=== PATIENT | male | born 1945 | race Caucasian/White ===

== ENCOUNTER → 2018-11-24 | Outpatient (CLI) | payer OTHER ==
[~2018-11-24] VITALS: Ht 182.9 cm; Wt 93.4 kg
[~2018-11-24] MED LIST: ASPIR 8181 MG PO; COENZYME Q10100 M2 PO; DILTIAZEM 24HR180 M1 PO; FISH OIL DR 1,1 EAC1 PO; FLECAINIDE ACET50 M1 PO; ICAPS MV TABLE1 EAC1 PO; LIPITOR 20 MG T20 M1 PO; METFORMIN HCL500 MG PO; NORVASC5 MG PO; TOPROL XL100 MG PO; VITAMINC500 PO; XARELTO20 MG PO; ZYLOPRIM300 MG PO
[2018-11-24 07:44] VITALS: BP 141/88
--- NOTE | 2018-11-24 08:56 | TEE ---
[facility] [address] [place] [address] TRANSESOPHAGEAL ECHOCARDIOGRAM Name: DYLAN PUGH Room #: REG CL Akhil#: [id number] ������������� Admission: 11/24/18 ������������� Attend Phys: Leonel Mason, Discharge: ��� ������������� ��� Date of : 47 Date of Service: 11/24/18 0856 �� Report #: [id number] �������� ��������������������������������������������[id number] THIS REPORT FOR: //name// APPROVED REPORT Study performed: 11/24/2018 08:02:36 EXAM: Transesophageal Echocardiogram with Doppler and cardioversion Patient Location: Out-Patient Room #: 9 Status: routine BSA: 2.18 HR: 79 bpm BP: 121/80 mmHg Rhythm: Atrial Fibrillation Other Information Study Quality: Excellent Indications Atrial Fibrillation Echo Enhancing Agent Indication: Rule out Shunt Agent(s) / Amount(s) Used: Agitated Saline 7 cc Procedure After obtaining informed consent, patient underwent transesophageal echo in the General Studies Program Chair Holding. Type of Sedation : Conscious Sedation Sedation was administered by Osman Adames RN. Sedation was achieved intravenously with: Versed (4 mg) Fentanyl (100 mcg) Transesophageal probe was inserted and advanced into esophagus without difficulty by Austyn Chapin MD. Echo enhancement indication: R/O Septal defect. Echo enhancement agent administered: Agitated Saline The CODIE was performed without complications. Synchronized Cardioversion acheived with 100 Joules after 1 attempt(s). Rhythm following Synchronized Cardioversion: Normal Sinus Rhythm Throughout the procedure, the blood pressure, pulse oximetry, cardiac rhythm, and rate were monitored. The patient tolerated the procedure without adverse effects. Recovery [facility] [address] [place] [address] TRANSESOPHAGEAL ECHOCARDIOGRAM Name: DYLAN PUGH Room #: REG CASSY Landaverde#: [id number] ������������� Admission: 11/24/18 ������������� Attend Phys: Leonel Mason, Discharge: ��� ������������� ��� Date of : 47 Date of Service: 11/24/18 0856 �� Report #: [id number] �������� ��������������������������������������������[id number] from conscious sedation was uneventful and vital signs were stable. Left Ventricle The left ventricle is normal size. There is normal LV segmental wall motion. There is normal left ventricular wall thickness. The left ventricular systolic function is normal. The left ventricular ejection fraction is within the normal range. LVEF is 50-55%. Right Ventricle The right ventricle is normal size. The right ventricular systolic function is normal. Atria Left atrium is severely dilated. No thrombus is visualized in the left atrium or appendage. No shunting by contrast bubble injection Right atrium is severely dilated. Aortic Valve The aortic valve is normal in structure. No aortic regurgitation is present. There is no aortic valvular stenosis. Mitral Valve The mitral valve is normal in structure. Mild mitral regurgitation. No evidence of mitral valve stenosis. Tricuspid Valve The tricuspid valve is normal in structure. Mild tricuspid regurgitation. Pulmonic Valve The pulmonary valve is normal in structure. There is no pulmonic valvular regurgitation. Great Vessels The aortic root is normal in size. The ascending aorta is normal in size. IVC is normal in size and collapses >50% with inspiration. Pericardium There is no pericardial effusion. <Conclusion> The left ventricular systolic function is normal. There is normal LV segmental wall motion. LVEF is 50-55%. [facility] [address] [address] TRANSESOPHAGEAL ECHOCARDIOGRAM Name: DYLAN PUGH Room #: REG [facility] [id number] ������������� Admission: 11/24/18 ������������� Attend Phys: Leonel Mason, Discharge: ��� ������������� ��� Date of : 47 Date of Service: 11/24/18 0856 �� Report #: [id number] �������� ��������������������������������������������[id number] Both atria are severely dilated. No thrombus is visualized in the left atrium or appendage. No shunting by contrast bubble injection The aortic valve is normal in structure. No aortic regurgitation or stenosis The mitral valve is normal in structure. Mild mitral regurgitation. There is no pericardial effusion. Successful cardioversion of atrial fibrillation to sinus rhythm following a single 100 J biphasic synchronous shock. ��������������������������������������������� <ELECTRONICALLY SIGNED> ���������������������������������������� By: Austyn Chapin MD, [facility] ��������������������������������������������� 11/24/1856 Austyn Chapin MD, FACC /INF
--- NOTE | 2018-11-26 14:04 | EKG ---
[place] [address] [facility] [place] [address] ELECTROCARDIOGRAM REPORT Name: DYLAN PUGH Room #: REG [facility]Jabari[facility] [id number] ������������������ Admission: 11/24/18 ������������������ Attend Phys: Leonel Mason MD, Discharge: ������������������ Date of : 47 Report #: [id number] ����������������������������������������������������������������� [id number] THIS REPORT FOR: //name// [facility] Test Date: 2018-11-24 Test Time: 08:49:05 Pat Name: DYLAN PUGH Department: Room: Gender: M Student Services Representative: Valerie SIFUENTES : 1945 Requested By: Austyn Chapin Order Number: [id number] MD: Austyn Chapin Measurements Intervals [place] Rate: 48 P: 44 [place]: 263 QRS: 0 QRSD: 107 T: 33 QT: 492 QTc: 440 Interpretive Statements Sinus bradycardia Prolonged [place] interval No previous ECG available for comparison Electronically Signed On 11-26-2018 14:04:42 CDT by Austyn Chapin [email or web address] ��������������������������������������������� <ELECTRONICALLY SIGNED> ���������������������������������������� By: Austyn Chapin MD, [facility] ��������������������������������������������� 11/26/18 1404 0849 0849 Austyn Chapin MD, FAC /EPI
== END | disposition home or self-care (01) ==
LOC: CATH 06:58
DX: I48.91 Unspecified atrial fibrillation (principal); I08.1 Rheumatic disorders of both mitral and tricuspid valves; I10 Essential (primary) hypertension; M10.9 Gout, unspecified; Z98.890 Other specified postprocedural states; Z87.891 Personal history of nicotine dependence; Z79.01 Long term (current) use of anticoagulants; Z79.899 Other long term (current) drug therapy; Z82.49 Family history of ischemic heart disease and other diseases of the circulatory system; Z79.82 Long term (current) use of aspirin

== ENCOUNTER → 2019-01-29 | Outpatient (CLI) | payer OTHER ==
[2019-01-29 09:40] LABS: HEMATOCRIT 43.4 % (42.0-52.0); HEMOGLOBIN 14.7 gm/dL (14.0-18.0); MCH 34.4 pg (26.0-34.0); MCHC 33.8 g/dL (28.0-37.0); MCV 101.8 fL (80.0-100.0); RBC 4.27 mil/uL (4.50-6.00); RDW 14.7 % (10.5-14.5); WBC 8.7 thou/uL (4.0-11.0)
[2019-01-29 09:56] LABS: APTT 34.8 Seconds (24.5-32.8); INR 1.2; PROTIME 12.7 Seconds (9.3-11.4)
[2019-01-29 10:01] LABS: ALBUMIN 3.7 g/dL (3.4-5.0); CALCIUM 9.4 mg/dL (8.5-10.1); CREATININE 1.1 mg/dL (0.7-1.3); POTASSIUM 4.5 mmol/L (3.5-5.1); TOTAL BILIRUBIN 1.4 mg/dL (<0.1-1.0); TOTAL PROTEIN 6.9 g/dL (6.4-8.2)
== END ==
LOC: CAT → CATH 15:35 → CAT 15:36
PROVIDERS: Internal Medicine Cardiovascular Disease
DX: I48.91 Unspecified atrial fibrillation (principal); I25.10 Atherosclerotic heart disease of native coronary artery without angina pectoris

== ENCOUNTER 2019-01-31 06:16 | Observation (INO) | payer OTHER ==
[2019-01-31] VITALS (11 sets, daily range): BP systolic 89–128; BP diastolic 53–90
[~2019-01-31] VITALS: Ht 182.9 cm; Wt 94.0 kg
[2019-01-31 07:02] LABS: ABSOLUTE NEUTROPHILS 4.1 thou/uL (1.4-8.2); BASOPHILS 0.9 % (0.0-2.0); EOSINOPHILS 10.4 % (0.0-3.0); HEMATOCRIT 44.6 % (42.0-52.0); HEMOGLOBIN 14.7 gm/dL (14.0-18.0); LYMPHOCYTES 31.2 % (24.0-44.0); MCH 33.6 pg (26.0-34.0); MCV 101.8 fL (80.0-100.0); MONOCYTES 7.3 % (1.0-8.0); PLATELET COUNT 230 thou/uL (150-400); POLYS 50.2 % (36.0-66.0); RBC 4.38 mil/uL (4.50-6.00); RDW 14.9 % (10.5-14.5); WBC 8.2 thou/uL (4.0-11.0)
[2019-01-31 07:13] LABS: CALCIUM 9.9 mg/dL (8.5-10.1); CREATININE 1.1 mg/dL (0.7-1.3); POTASSIUM 4.3 mmol/L (3.5-5.1)
[2019-01-31 07:15] LABS: APTT 30.3 Seconds (24.5-32.8); INR 1.1; PROTIME 11.4 Seconds (9.3-11.4)
[2019-01-31 07:19] LABS: ALBUMIN 3.9 g/dL (3.4-5.0); TOTAL BILIRUBIN 1.2 mg/dL (<0.1-1.0); TOTAL PROTEIN 7.5 g/dL (6.4-8.2)
--- NOTE | 2019-01-31 17:11 | NUR ---
PT CARE ASSUMED APPROX 1345. ASSESSMENTS CHARTED. VSS. PT DENIES PAIN AND SOA. PT INITIALLY REPORTS A SORE THROAT AND AN ORDER FOR LOZENGES WAS OBTAINED THEN PT REFUSED THEM. RIGHT GROIN POST SHEATH SITE C/D/I AND NO HEMATOMA NOTED. GAIT UNASSESSED AT THIS TIME DUE TO POST PROCEDURE BEDREST. MARTINEZ CATH PATENT. WAS AT BEDSIDE UPON ARRIVAL. ADMISSION COMPLETED WITH HER. PT TOLERATING POC. NO DISTRESS NOTED.
--- NOTE | 2019-01-31 19:19 | NUR ---
APPROX 1820 MARTINEZ CATH REMOVED WITHOUT ISSUE. PT HAS ALREADY VOIDED. UP WITH STEADY GAIT
[2019-02-01 00:24] VITALS: BP 105/62
[2019-02-01 03:21] VITALS: BP 102/63
--- NOTE | 2019-02-01 04:32 | NUR ---
ASSUMED PT CARE AT 1900. PT A/OX4, VITAL SIGNSSTABLE, ASSSESSMENT CHARTED. NO COMPLAINT OF PAIN, GROIN SITE CLEAN DRY, INTACT. PT RESTED WELL THROUGH THE NIGHT. NO ACUTE CHANGES THROUGH THE NIGHT. PROGRESSING TOWARD PLAN OF CARE, WILL CONTINUE TO MONITOR.
[2019-02-01 08:00] VITALS: BP 115/67
[2019-02-01] MEDS ORDERED: TAMBOCOR 100 M100 M1 PO (08:20)
--- NOTE | 2019-02-01 08:22 | P ---
[facility] [place] [address] PROCEDURE REPORT Name: DYLAN PUGH Room #: 210-P [facility]..#: [id number] Admission: 01/31/19 Attend Phys: Favian Benitez MD Discharge: Date of : 47 Report #: [id number] THIS REPORT FOR: //name// CC: Gary Benitez PREOPERATIVE DIAGNOSIS: Atrial fibrillation. POSTOPERATIVE DIAGNOSIS: Atrial fibrillation. HISTORY: The patient is a 73-year-old male with history of recurrent atrial fibrillation despite antiarrhythmic drug therapy. He is here for ablation. PROCEDURES PERFORMED: 1. Atrial fibrillation, CPT code 12774. 2. 3D mapping, CPT code 40404. 3. Intracardiac echo, CPT code 61984. 4. Focal ablation, CPT code 71963. ANESTHESIA: The patient underwent general anesthesia with no anesthesia related complications. DESCRIPTION OF PROCEDURE: The patient underwent informed consent. We discussed the details of the procedure including the risks, which include but not limited to bleeding, vascular damage, cardiac perforation, stroke or IN. He understood these risks and is willing to proceed. The patient was brought to EP laboratory in fasting and sedated state, prepped and draped in a sterile fashion. At baseline, the patient was noted to be in atrial fibrillation. Next, I injected lidocaine at the right groin and obtained access to the right femoral vein x 3, placing an 8, 9 and 7-Namibian short sheath using the modified Seldinger technique. Next, under fluoroscopy, decapolar catheter was placed easily in the coronary sinus and an ice catheter was placed in the right atrium. Using intracardiac ultrasound, I visualized the left common ostium in the right superior and right inferior pulmonary veins. I also visualized the left atrial appendage, which was within normal limits. Next, the patient was systemically heparinized and a transseptal was performed using an SL1 sheath and a [place] needle. On the first attempt, I crossed with my wire into the left superior pulmonary vein and then exchanged the SL1 sheath for the cryo sheath and placed this into the left atrium. Next, using a Lasso catheter, a detailed 3D voltage map of the left atrium was created of the left common ostium, which had a superior and inferior branch. The patient also had right superior and right inferior branches with normal takeoff. Next, the Lasso was removed and the cryoballoon was placed in the left atrium. I performed multiple freezes of the left superior pulmonary vein and although I was able to get a slowing of this pulmonary vein, I could never obtained isolation. I then decided to turn my attention to the left inferior pulmonary vein. This vein [address] [address] PROCEDURE REPORT Name: DYLAN PUGH Room #: 210-P [facility] Chiquita M.RJabari#: [id number] Admission: 01/31/19 Attend Phys: Favian Benitez MD Discharge: Date of : 47 Report #: [id number] underwent two 4-minute freezes and the vein isolated during the first freeze within 20 seconds. I then re-interrogated the left superior pulmonary vein, hoping that this would now be isolated, but it still remained connected. I therefore turned my attention to the right superior pulmonary vein and performed a 4-minute, followed by 3-minute freeze. The vein isolated in the first freeze within 40 seconds. I then performed a 4-minute, followed by 3-minute freeze of the right inferior pulmonary vein. This vein isolated during the first freeze within 30 seconds. Of note, the right superior pulmonary vein had a difficult takeoff was hard for me to actually engage this vessel, but once engaged isolation was straightforward. Next, I re-interrogated the left superior pulmonary vein and it was still clearly connected. I decided to therefore perform a posterior wall isolation using the cryoballoon. I performed 3 freezes anchored from the left superior pulmonary vein and 3 freezes isolated anchored from the right superior pulmonary vein. This did not result in isolation of the left superior pulmonary vein either. I performed 2 freezes anchored from the left inferior pulmonary vein of the posterior wall as well and this did not result in isolation of the left superior either. The esophageal temperatures were monitored during our freezes and there were never any significant changes in esophageal temperature. Therefore, at this point, I decided to perform a cardioversion. The patient underwent a 200 joule cardioversion and I then created a voltage map using a Lasso catheter. The left superior pulmonary vein was clearly connected with conduction noted while pacing from the Lasso catheter. All the other veins were isolated and furthermore the posterior roof and posterior wall appeared to be isolated as well. Therefore, I performed a second transseptal using an SL1 sheath and placed a SmartTouch ThermoCool into the left atrium. There was a small area of connection that was arising from the superior anterior aspect of the left superior pulmonary vein, right along the ridge. I placed my ablation catheter at the earliest signals noted on the Lasso catheter and ablation was started at 35 vazquez in isolation of the vein occurred within 10 seconds. I therefore decided to perform additional ablation along this region to ensure that this vein does not reconnect. This was clearly a gap that I could not get into approximation with the cryoballoon. Therefore, I repeated the voltage map of the left atrium and everything was now isolated. There was clearly entrance and exit block in the left superior pulmonary vein. As such, at this point, the procedure was concluded. Using intracardiac ultrasound, I verified there was no pericardial effusion. The patient received systemic protamine and once ACT was within acceptable range, catheters and sheaths were pulled and hemostasis was obtained. The patient awoke neurologically and hemodynamically intact. No complications and no significant bleeding. CONCLUSIONS: 1. Successful AFib ablation with isolation of the 4 pulmonary veins. 2. Successful posterior wall isolation with creation of a posterior roofline. [facility] [address] [place] [address] PROCEDURE REPORT Name: DYLAN PUGH Room #: 210-P [facility]..#: [id number] Admission: 01/31/19 Attend Phys: Favian Benitez MD Discharge: Date of : 47 Report #: [id number] 3. Successful isolation of the left superior pulmonary vein, requiring a combination of cryoablation and radiofrequency ablation. <ELECTRONICALLY SIGNED> By: Favian Benitez MD 02/01/19 0822 1633 0159 Favian Benitez MD /nt
--- NOTE | 2019-02-01 08:23 | D ---
[facility] [place] [address] DISCHARGE SUMMARY Name: DYLAN PUGH Room #: 210-P [facility]..#: [id number] Admission: 01/31/19 Attend Phys: Favian Benitez MD Discharge: Date of : 47 Report #: [id number] THIS REPORT FOR: //name// CC: Gary Benitez DISCHARGE DIAGNOSIS: 1. Atrial fibrillation. PROCEDURES PERFORMED: AFib ablation. HISTORY: The patient is a 73-year-old with AFib, here for an ablation. He underwent successful AFib ablation with no complications. HOSPITAL COURSE: He was monitored in the CCU overnight and did well. On the day of discharge, he denied any chest pain, shortness of breath, PND, orthopnea, presyncope, syncope. No fevers or chills. PHYSICAL EXAMINATION: GENERAL: He is in no acute distress. HEART: Regular rate and rhythm with no murmurs, rubs, gallops. LUNGS: Clear to auscultation bilaterally. ABDOMEN: Soft, nontender, nondistended. EXTREMITIES: No clubbing, cyanosis, edema. Right groin showed no significant bruising or hematoma. On telemetry, he remained in sinus rhythm. As such, he was deemed stable for discharge home. Discharge instructions were reviewed. He will go home on his current anticoagulation regimen and flecainide 150 b.i.d. He will follow up with my nurse practitioner in 2 weeks and see me in 3 months. <ELECTRONICALLY SIGNED> By: Favian Benitez MD 02/01/1922 9 5 Favian Benitez MD /nt
[2019-02-01 08:35] VITALS: BP 115/67
[2019-02-01 08:37] VITALS: BP 115/67
--- NOTE | 2019-02-01 15:08 | NUR ---
ASSUMED CARE 0700. ALERT X4, DENIES PAIN, GROIN DRESSING C/D/I, REMOVED BY CARDIOLGIST SITE OOZING DRESING REPLACE BY NURSE. DC HOME TO SELF CARE. REVIEW MEDICATIONS, AND ABLATION EDUCATIONS AND PRECAUTIONS, IV REMOVED, ALL BELONGS LEFT WITH PATIENT. EDUCATED TO FOLLOW UP WITH CARDIOLGIST DISCUSSED.
== END 2019-02-01 10:36 | disposition home or self-care (01) ==
LOC: CATH 06:16 → 2N 14:10 → CATH 15:47 → ENTRNSPT 02-01 10:25 → EDTRNSPTSTS 02-01 10:27 → 2N 02-01 10:36
PROVIDERS: ADMIT Internal Medicine Cardiovascular Disease
DX: I48.91 Unspecified atrial fibrillation (principal); I48.92 Unspecified atrial flutter; I10 Essential (primary) hypertension; E78.5 Hyperlipidemia, unspecified; E11.9 Type 2 diabetes mellitus without complications; M10.9 Gout, unspecified; Z79.82 Long term (current) use of aspirin; Z79.84 Long term (current) use of oral hypoglycemic drugs; Z79.899 Other long term (current) drug therapy; E78.00 Pure hypercholesterolemia, unspecified; Z87.891 Personal history of nicotine dependence
CPT/HCPCS: 62110; 62900; 65020; 65040; 70005

== ENCOUNTER → 2019-05-03 | Outpatient (CLI) | payer OTHER ==
[~2019-05-03] MED LIST changes: +TAMBOCOR 100 M100 M1 PO
== END ==
LOC: SJCVC 13:40
DX: I44.0 Atrioventricular block, first degree (principal); I48.0 Paroxysmal atrial fibrillation; I10 Essential (primary) hypertension; E78.5 Hyperlipidemia, unspecified; E11.9 Type 2 diabetes mellitus without complications; Z79.82 Long term (current) use of aspirin; Z79.899 Other long term (current) drug therapy

== ENCOUNTER → 2019-08-01 | Outpatient (CLI) | payer OTHER | LOC: SJCVC 14:06 | PROVIDERS: ATTEND Internal Medicine Cardiovascular Disease | DX: I48.91 Unspecified atrial fibrillation (principal); I48.92 Unspecified atrial flutter; E11.9 Type 2 diabetes mellitus without complications; M10.9 Gout, unspecified; E78.00 Pure hypercholesterolemia, unspecified; Z79.899 Other long term (current) drug therapy; Z87.891 Personal history of nicotine dependence ==

== ENCOUNTER → 2019-12-21 | Outpatient (CLI) | payer OTHER | LOC: SJCVC 10:45 | PROVIDERS: ATTEND Internal Medicine Cardiovascular Disease | DX: I44.0 Atrioventricular block, first degree (principal); R00.1 Bradycardia, unspecified; I48.91 Unspecified atrial fibrillation; I10 Essential (primary) hypertension; E78.00 Pure hypercholesterolemia, unspecified; E11.9 Type 2 diabetes mellitus without complications; Z98.890 Other specified postprocedural states; Z79.899 Other long term (current) drug therapy; Z87.891 Personal history of nicotine dependence; Z86.79 Personal history of other diseases of the circulatory system ==

== ENCOUNTER → 2020-07-31 | Outpatient (CLI) | payer OTHER | LOC: SJCVC 13:17 | PROVIDERS: ATTEND Internal Medicine Cardiovascular Disease | DX: R94.31 Abnormal electrocardiogram [ECG] [EKG] (principal); R00.1 Bradycardia, unspecified; I44.0 Atrioventricular block, first degree; I48.91 Unspecified atrial fibrillation; I48.92 Unspecified atrial flutter; I10 Essential (primary) hypertension; E78.5 Hyperlipidemia, unspecified; E11.9 Type 2 diabetes mellitus without complications; M10.9 Gout, unspecified; E78.00 Pure hypercholesterolemia, unspecified; Z98.890 Other specified postprocedural states; Z79.84 Long term (current) use of oral hypoglycemic drugs; Z79.899 Other long term (current) drug therapy; Z87.891 Personal history of nicotine dependence; Z82.49 Family history of ischemic heart disease and other diseases of the circulatory system ==

== ENCOUNTER → 2020-09-16 | Outpatient (CLI) | payer OTHER | LOC: SJCVCIMAG 08:57 | PROVIDERS: ATTEND Internal Medicine Cardiovascular Disease | DX: I34.0 Nonrheumatic mitral (valve) insufficiency (principal); R94.31 Abnormal electrocardiogram [ECG] [EKG]; I48.91 Unspecified atrial fibrillation; E78.00 Pure hypercholesterolemia, unspecified; D68.59 Other primary thrombophilia; E11.9 Type 2 diabetes mellitus without complications; I10 Essential (primary) hypertension; M10.9 Gout, unspecified; Z98.890 Other specified postprocedural states; Z86.79 Personal history of other diseases of the circulatory system; Z79.84 Long term (current) use of oral hypoglycemic drugs; Z79.82 Long term (current) use of aspirin; Z79.899 Other long term (current) drug therapy; Z87.891 Personal history of nicotine dependence; Z82.49 Family history of ischemic heart disease and other diseases of the circulatory system ==

== ENCOUNTER → 2021-02-02 | Outpatient (CLI) | payer OTHER | LOC: SJCVC 09:57 | PROVIDERS: ATTEND Internal Medicine Cardiovascular Disease | DX: R00.1 Bradycardia, unspecified (principal); I48.0 Paroxysmal atrial fibrillation; I10 Essential (primary) hypertension; E78.00 Pure hypercholesterolemia, unspecified; E11.9 Type 2 diabetes mellitus without complications; Z98.890 Other specified postprocedural states; Z86.79 Personal history of other diseases of the circulatory system; Z79.82 Long term (current) use of aspirin; Z79.84 Long term (current) use of oral hypoglycemic drugs; Z79.899 Other long term (current) drug therapy; Z72.89 Other problems related to lifestyle; Z87.891 Personal history of nicotine dependence ==

== ENCOUNTER → 2021-04-01 | Outpatient (CLI) | payer OTHER | LOC: CAT 12:13 | PROVIDERS: ATTEND Internal Medicine Cardiovascular Disease | DX: Z13.6 Encounter for screening for cardiovascular disorders (principal); E78.00 Pure hypercholesterolemia, unspecified; I25.10 Atherosclerotic heart disease of native coronary artery without angina pectoris ==

== ENCOUNTER → 2021-04-08 | Outpatient (CLI) | payer OTHER | LOC: SJCVCIMAG 10:47 | PROVIDERS: ATTEND Internal Medicine Cardiovascular Disease | DX: Z01.810 Encounter for preprocedural cardiovascular examination (principal); I44.0 Atrioventricular block, first degree; R93.1 Abnormal findings on diagnostic imaging of heart and coronary circulation; I48.0 Paroxysmal atrial fibrillation; I25.10 Atherosclerotic heart disease of native coronary artery without angina pectoris; I10 Essential (primary) hypertension; E78.00 Pure hypercholesterolemia, unspecified; E11.9 Type 2 diabetes mellitus without complications; M10.9 Gout, unspecified; Z98.890 Other specified postprocedural states; Z86.79 Personal history of other diseases of the circulatory system; Z87.891 Personal history of nicotine dependence; Z72.89 Other problems related to lifestyle; Z79.82 Long term (current) use of aspirin; Z79.84 Long term (current) use of oral hypoglycemic drugs; Z79.899 Other long term (current) drug therapy ==